=== PATIENT | male | born 1955 | race Hispanic/Latino ===

== ENCOUNTER → 2023-04-26 | Outpatient (CLI) | payer MEDICARE | LOC: RAD 08:06 | PROVIDERS: ATTEND Internal Medicine | DX: M17.0 Bilateral primary osteoarthritis of knee (principal) ==

== ENCOUNTER → 2023-08-18 | Day surgery (SDC) | payer MEDICARE ==
[~2023-08-18] MED LIST: BUMETANIDE1 MG PO; CEFAZOLIN2 GM/50 ML; CLOPIDOGREL75 MG PO; COZAAR50 MG PO; DOCUSATE SODIU100 MG PO; DULCOLAX STOOL100 MG; ECOTRIN81 MG PO; ETOMIDATE 40 MG/ 20ML VIAL IV ONE; GLUCOPHAGE PO; GLYCOLAX; KETAMINE 50MG/5ML SYR ONE; LACTATED RINGER'S 1,000 ML ONE; LEVOFLOXACIN250 MG PO; MEDI-LYTE TABL1 EACH; METHOCARBAMOL750 MG PO; METOCLOPRAMIDE HCL 10 MG/2ML VIAL ONE; METOPROLOL SUCC25 MG PO; NEURONTIN100 MG PO; ONDANSETRON ODT4 MG PO; PANTOPRAZOLE SO40 MG PO; PROPOFOL IV EMULSION 10 MG/ML 20 ML VIAL ONE; RIFAMPIN300 MG PO; ULTRAM 50MG50 MG PO
[2023-08-18 10:41] LABS: BASOPHILS # (AUTO) 0.1 (0.0-0.1); BASOPHILS % 0.5 % (0.0-1.0); EOSINOPHILS # (AUTO) 0.3 (0.0-0.4); EOSINOPHILS % 2.6 % (0.0-6.0); HEMATOCRIT 29.7 % (38.2-49.6); LYMPHOCYTES # (AUTO) 1.6 (1.0-3.2); LYMPHOCYTES % 16.9 % (18.0-39.1); MEAN CORPUSCULAR HEMOGLOBIN 30.1 pg (28-32); MEAN CORPUSCULAR HGB CONC 33.7 g/dL (31-35); MEAN CORPUSCULAR VOLUME 89.5 fL (81-99); MONOCYTES # (AUTO) 0.6 (0.2-0.8); MONOCYTES % 6.3 % (4.4-11.3); NEUTROPHILS % 73.3 % (38.7-80.0); PLATELET COUNT 337 x10e3/uL (140-360); RED BLOOD COUNT 3.32 x10e6/uL (4.3-5.7); RED CELL DISTRIBUTION WIDTH 13.8 % (11.7-14.4); WHITE BLOOD COUNT 9.58 x10e3/uL (4.8-10.8)
[2023-08-18 13:10] VITALS: TEMP 97.8
[2023-08-18 13:37] VITALS: BP 120/70; PULSE 68; RESP 18; O2SAT 100
== END | disposition home or self-care (01) ==
LOC: OR 09:52
PROVIDERS: ATTEND Internal Medicine Gastroenterology
DX: K29.50 Unspecified chronic gastritis without bleeding (principal); B96.81 Helicobacter pylori [H. pylori] as the cause of diseases classified elsewhere; K44.9 Diaphragmatic hernia without obstruction or gangrene; K21.00 Gastro-esophageal reflux disease with esophagitis, without bleeding; K92.0 Hematemesis; R19.7 Diarrhea, unspecified; I10 Essential (primary) hypertension; E78.00 Pure hypercholesterolemia, unspecified; I25.10 Atherosclerotic heart disease of native coronary artery without angina pectoris; E11.9 Type 2 diabetes mellitus without complications; Z79.84 Long term (current) use of oral hypoglycemic drugs; Z79.899 Other long term (current) drug therapy; Z87.891 Personal history of nicotine dependence
CPT/HCPCS: 36415; 43239; 85025; 93005; C9113; J2704; J2765; J7121